=== PATIENT | male | born 1930 | race Caucasian/White ===

== ENCOUNTER → 2016-07-23 | Outpatient (CLI) | payer MEDICARE, MEDICAID ==
[~2016-07-23] MED LIST: CHOL378P PO; FINA5TAB42 PO; FLUO5DRO RIGHT EYE; FURO20TA4 PO; LACT1CAP56 PO; LEVO125T11 PO; LORA-320 PO; MAGN400T26 PO; OMEP20CA10 PO; POTA10CA37 PO; SODI45SP5 EA NOSTRIL; TAMS0.4C20 PO; TIMO5DRO BOTH EYES; [UNRECOGNIZED DRUG - CODE] IM; [UNRECOGNIZED DRUG - CODE] PO; [UNRECOGNIZED DRUG - CODE] PO
== END ==
LOC: LABNH.BH 06:17
PROVIDERS: ATTEND Family Medicine
DX: E03.9 Hypothyroidism, unspecified (principal)
CPT/HCPCS: 36415; 84443; P9604

== ENCOUNTER → 2016-08-12 | Outpatient (CLI) | payer MEDICARE, MEDICAID ==
[~2016-08-12] MED LIST changes: +CULTURELLE CAP1 EAC1 PO; -LACT1CAP56 PO
== END ==
LOC: LABNH.BH 01:22
PROVIDERS: ATTEND Family Medicine
DX: E83.40 Disorders of magnesium metabolism, unspecified (principal)
CPT/HCPCS: 36415; 83735; P9604

== ENCOUNTER 2017-06-07 15:24 | Inpatient (IN) ==
--- NOTE | 2017-06-07 18:25 | Emergency Department Report ---
General Adult HPI - General Chief complaint: Medical Emergency <AugustJerson - 06/17/17 10:16> Stated complaint: not eating & drinking <AugustJerson 06/17/17 10:16> Time Seen by Provider: 06/07/17 18:15 <AugustGermánJerson M 06/17/17 10:16> Source: other (detention staff) <Antonina Suarez 06/07/17 18:28> Mode of arrival: wheelchair <Antonina Suarez 06/07/17 18:28> Limitations: altered mental status <Antonina Suarez 06/07/17 18:28> - History of Present Illness HPI narrative: Pt presents from the [facility] with increased weakness and fatigue. Staff reports pt was tested for flu last week and found to be negative. He was placed on Tamiflu. However pt has had an increase in weakness and staff has noted he is not ambulating or participating in daily activities as usual. Pt is unable to verbalize any symptoms <Antonina Suarez 06/07/17 18:28> Onset (ago): day(s) <Antonina Suarez 06/07/17 18:28> - Related Data Home Medications Medication Instructions Recorded Confirmed Tamsulosin HCl [Flomax] 0.4 mg PO HS #0 03/06/13 06/07/17 Levothyroxine Sodium 125 mcg PO ACB #0 10/21/15 06/07/17 Bisacodyl Supp [Dulcolax] 10 mg RECTALLY DAILY PRN 06/07/17 06/07/17 Cholestyramine (with Sugar) 4 gm PO BIDLS 06/07/17 06/07/17 [Questran Powder] Dextran 70/Hypromellose/Pf [Tears 1 drop EACH EYE TID 06/07/17 06/07/17 Naturale Free Drops] Dorzolamide HCl/Timolol Maleat 1 drop LEFT EYE BID 06/07/17 06/07/17 [Cosopt Eye Drops] Finasteride [Proscar] 5 mg PO DAILY 06/07/17 06/07/17 Furosemide [Lasix] 60 mg PO DAILY 06/07/17 06/07/17 Lactobacillus [Culturelle] 1 cap PO DAILY 06/07/17 06/07/17 Lactose-Reduced Food [Nutritional 237 ml PO TID 06/07/17 06/07/17 Shake] Magnesium Oxide [Magnesium] 800 mg PO DAILY 06/07/17 06/07/17 Mirtazapine [Remeron] 7.5 mg PO HS 06/07/17 06/07/17 Multivitamin/Iron/Folic Acid 1 tab PO DAILY 06/07/17 06/07/17 [Multivitamin with Iron Tablet] Oseltamivir Phosphate 75 mg PO BID 06/07/17 06/07/17 Potassium Chloride [Klor-Con 10 meq PO BID 06/07/17 06/07/17 Sprinkle] Sodium Chloride [Saline Nasal Mist] 2 spray EA NOSTRIL TID 06/07/17 06/07/17 Travoprost 0.004% Eye Drops 1 drop LEFT EYE HS 06/07/17 06/07/17 [Travatan Z] acetaZOLAMIDE [Acetazolamide] 500 mg PO BID 06/07/17 06/07/17 guaiFENesin [Guaifenesin] 200 mg PO TID PRN 06/07/17 06/07/17 prednisoLONE acetate [Prednisolone 1 drop LEFT EYE BID 06/07/17 06/07/17 Acetate] <August,[facility] 06/17/17 10:16> Allergies Allergy/AdvReac Type Severity Reaction Status Date / Time apraclonidine Allergy Unknown Verified 06/07/17 18:08 ceftriaxone Allergy Unknown Verified 06/07/17 18:08 cefuroxime Allergy Unknown Verified 06/07/17 18:08 <August,[facility] 06/17/17 10:16> Review of Systems Limitations: ROS unobtainable due to patient's medical condition <Antonina Suarez - 06/07/17 18:28> [facility] Patient Stated Medical History Cataracts Yes Glaucoma Yes Other HEENT Yes: iridocyclitis, dry eye syndrome, epistaxis , actinic keratosis Other Cardiology Yes: Mitral Valve insufficiency Diabetes Mellitus Type 2 Yes Gastroesophageal Reflux Yes Disease Other GI Yes: Ulcerative Colitis, Constipation Hx Benign Prostatic Yes Hyperplasia An[facility] Yes [facility] Patient Stated Medical History Cataracts Yes Glaucoma Yes Other HEENT Yes: iridocyclitis, dry eye syndrome, epistaxis , actinic keratosis Other Cardiology Yes: Mitral Valve insufficiency Diabetes Mellitus Type 2 Yes Gastroesophageal Reflux Yes Disease Other GI Yes: Ulcerative Colitis, Constipation Hx Benign Prostatic Yes Hyperplasia Anemia Yes <ErickAntonina R 06/07/17 22:56> Physical Exam Limited assessment 2/2 non verbal pt. <Rosie Suarezan Noe Huang 06/07/17 18:28> - Limitations Limitations: altered mental status <Antonina Suarez 06/07/17 18:28> - General General appearance: alert, lethargic <Atnonina Suarez 06/07/17 18:28> - Normal Exams: Head:: Normocephalic without trauma <Antonina Suarez 06/07/17 18:28> Neck:: Full range of motion, without adenopathy <Antonina Suarez 18:28> Abdomen:: Bowel sounds positive, soft, non-tender, non-distended <Antonina Suarez 06/07/17 18:28> Musculoskeletal:: No tenderness, or deformity noted, good range of motion, all extremities <ErickAntonina Noe Huang 06/07/17 18:28> Integumentary:: No rashes <ErickAntoninastella Huang 06/07/17 18:28> Neurological:: Patient is alert <Antonina Suarez 06/07/17 18:28> Course Vital Signs Temperature 97.9 F 06/07/17 15:46 Pulse Rate 91 06/07/17 15:46 Respiratory Rate 18 06/07/17 15:46 Blood Pressure 126/90 H 06/07/17 15:46 Pulse Oximetry 93 06/07/17 15:46 Temperature 99.2 F 06/13/17 23:00 Pulse Rate 89 06/13/17 23:00 Respiratory Rate 20 06/13/17 23:00 Blood Pressure 155/45 H 06/13/17 23:00 Pulse Oximetry 98 06/13/17 23:00 <AugustJerson - 06/17/17 10:16> Medical Decision Making - MDM Narrative Medical decision making narrative: Lab, X ray and EKG obtained, history reviewed. Findings discussed with Dr Jimenez with telemedicine who requests additional lab. That lab obtained Dr Jimenez returned call accepting to admit pt inpatient tele. FIndings and plan discussed with pt and pt bedside staff. <Antonina Suarez R - 06/07/17 22:56> - Differential Diagnosis pneumonia, influenza, UTI, CVA <Antonina Suarez - 06/07/17 18:28> - Lab Data Lab results reviewed: Yes: I reviewed the patient's lab results. <Antonina Suarez R - 06/07/17 22:56> Result diagrams: 06/10/17 05:16 06/10/17 05:16 <AugustJerson M - 06/17/17 10:16> Lab Results 06/07/17 06/07/17 06/07/17 Range/Units 18:36 18:39 18:39 WBC 10.8 (4.5-11.0) T/MM3 RBC 4.34 L (4.50-5.90) M/MM3 Hgb 14.9 (13.5-17.5) GM/DL Hct 44.9 (41-53) % MCV 103.5 H (80-100) UM3 MCH 34.3 H (26-34) UUG MCHC 33.2 (31-37) GM/DL RDW Std Deviation 57.4 H (36.9-50.2) FL Plt Count 134 (130-400) T/MM3 MPV 11.3 (9.4-12.4) UM3 Immature Gran % (Auto) Not performed Neut % (Auto) Not performed Lymph % (Auto) Not performed Ray % (Auto) Not performed Eos % (Auto) Not performed Baso % (Auto) Not performed Neut # (Auto) Not performed Lymph # (Auto) Not performed Ray # (Auto) Not performed Eos # (Auto) Not performed Baso # (Auto) Not performed Abs Immat Gran (auto) Not performed Neutrophils % (Manual) 78.0 H (33-66) % Lymphocytes % (Manual) 14.0 L (23-45) % Monocytes % (Manual) 8.0 (0-9.0) % Neutrophils # (Manual) 8.4 H (1.8-7.7) T/MM3 Lymphocytes # (Manual) 1.5 (1-4.8) T/MM3 Monocytes # (Manual) 0.9 H (0-0.8) T/MM3 Nucleated RBCs 2 Polychromasia 1+ Anisocytosis 1+ Macrocytosis 1+ RBC Morph Comment Abnormal Turbidity < 20 (0-20) Sodium 146 H (134-144) MEQ/L Potassium 4.5 (3.6-5) MEQ/L Chloride 113 H (98-107) MEQ/L Carbon Dioxide 16 L (22-30) MEQ/L Anion Gap 17 H (5-15) MEQ/L BUN 52.0 H* (9-20) MG/DL Creatinine 1.6 H (0.8-1.5) MG/DL GFR Calculation 41 BUN/Creatinine Ratio 33 H (6-26) RATIO Glucose 142 H (75-110) MG/DL Calculated Osmolality 297 H (261-280) MOSM/KG Calcium 9.3 (8.4-10.2) MG/DL Total Bilirubin 1.30 (0.20-1.30) MG/DL Icterus Index < 2 (0-7) AST 23 (17-59) U/L ALT 41 (21-72) U/L Alkaline Phosphatase 93 (38-126) U/L Troponin I 0.038 (0-0.12) ng/ml B-Natriuretic Peptide (0-175) pg/mL Total Protein 7.8 (6.3-8.2) G/DL Albumin 4.1 (3.5-5.0) G/DL Globulin 3.7 H (2.4-3.6) G/DL Albumin/Globulin Ratio 1.1 (1.1-2.2) RATIO Specimen Hemolysis < 15 < 15 (0-25) Adenovirus (PCR) (Negative) B.parapertussis DNA PCR (Negative) C. pneumoniae DNA (PCR) (Negative) Coronavirus OC43 (PCR) (Negative) Coronavirus HKU1 (PCR) (Negative) Coronavirus 229E (PCR) (Negative) Coronavirus NL63 (PCR) (Negative) Human Metapneumovir PCR (Negative) Influenza A (H1) PCR (Negative) Influ A (H1N1/09) PCR (Negative) Influenza A (H3) PCR (Negative) Influenza Type A (PCR) (Negative) Influenza A Untype (PCR) (Negative) Influenza Type B (PCR) (Negative) M. pneumoniae (PCR) (Negative) Parainfluenza 1 (PCR) (Negative) Parainfluenza 2 (PCR) (Negative) Parainfluenza 3 (PCR) (Negative) Parainfluenza 4 (PCR) (Negative) RSV (PCR) (Negative) Entero/Rhino (PCR) (Negative) 06/07/17 06/07/17 Range/Units 18:39 19:37 WBC (4.5-11.0) T/MM3 RBC (4.50-5.90) M/MM3 Hgb (13.5-17.5) GM/DL Hct (41-53) % MCV (80-100) UM3 MCH (26-34) UUG MCHC (31-37) GM/DL RDW Std Deviation (36.9-50.2) FL Plt Count (130-400) T/MM3 MPV (9.4-12.4) UM3 Immature Gran % (Auto) Neut % (Auto) Lymph % (Auto) Ray % (Auto) Eos % (Auto) Baso % (Auto) Neut # (Auto) Lymph # (Auto) Ray # (Auto) Eos # (Auto) Baso # (Auto) Abs Immat Gran (auto) Neutrophils % (Manual) (33-66) % Lymphocytes % (Manual) (23-45) % Monocytes % (Manual) (0-9.0) % Neutrophils # (Manual) (1.8-7.7) T/MM3 Lymphocytes # (Manual) (1-4.8) T/MM3 Monocytes # (Manual) (0-0.8) T/MM3 Nucleated RBCs Polychromasia Anisocytosis Macrocytosis RBC Morph Comment Turbidity (0-20) Sodium (134-144) MEQ/L Potassium (3.6-5) MEQ/L Chloride (98-107) MEQ/L Carbon Dioxide (22-30) MEQ/L Anion Gap (5-15) MEQ/L BUN (9-20) MG/DL Creatinine (0.8-1.5) MG/DL GFR Calculation BUN/Creatinine Ratio (6-26) RATIO Glucose (75-110) MG/DL Calculated Osmolality (261-280) MOSM/KG Calcium (8.4-10.2) MG/DL Total Bilirubin (0.20-1.30) MG/DL Icterus Index (0-7) AST (17-59) U/L ALT (21-72) U/L Alkaline Phosphatase (38-126) U/L Troponin I (0-0.12) ng/ml B-Natriuretic Peptide 7970 H (0-175) pg/mL Total Protein (6.3-8.2) G/DL Albumin (3.5-5.0) G/DL Globulin (2.4-3.6) G/DL Albumin/Globulin Ratio (1.1-2.2) RATIO Specimen Hemolysis (0-25) Adenovirus (PCR) Negative (Negative) B.parapertussis DNA PCR Negative (Negative) C. pneumoniae DNA (PCR) Negative (Negative) Coronavirus OC43 (PCR) Negative (Negative) Coronavirus HKU1 (PCR) Negative (Negative) Coronavirus 229E (PCR) Negative (Negative) Coronavirus NL63 (PCR) Negative (Negative) Human Metapneumovir PCR Negative (Negative) Influenza A (H1) PCR Negative (Negative) Influ A (H1N1/09) PCR Negative (Negative) Influenza A (H3) PCR Negative (Negative) Influenza Type A (PCR) Negative (Negative) Influenza A Untype (PCR) Negative (Negative) Influenza Type B (PCR) Negative (Negative) M. pneumoniae (PCR) Negative (Negative) Parainfluenza 1 (PCR) Negative (Negative) Parainfluenza 2 (PCR) Negative (Negative) Parainfluenza 3 (PCR) Negative (Negative) Parainfluenza 4 (PCR) Negative (Negative) RSV (PCR) Negative (Negative) Entero/Rhino (PCR) Negative (Negative) <August,[facility] - 06/17/17 10:16> Lab Results 06/07/17 06/07/17 06/07/17 Range/Units 18:36 18:39 18:39 WBC 10.8 (4.5-11.0) T/MM3 RBC 4.34 L (4.50-5.90) M/MM3 Hgb 14.9 (13.5-17.5) GM/DL Hct 44.9 (41-53) % MCV 103.5 H (80-100) UM3 MCH 34.3 H (26-34) UUG MCHC 33.2 (31-37) GM/DL RDW Std Deviation 57.4 H (36.9-50.2) FL Plt Count 134 (130-400) T/MM3 MPV 11.3 (9.4-12.4) UM3 Immature Gran % (Auto) Not performed Neut % (Auto) Not performed Lymph % (Auto) Not performed Ray % (Auto) Not performed Eos % (Auto) Not performed Baso % (Auto) Not performed Neut # (Auto) Not performed Lymph # (Auto) Not performed Ray # (Auto) Not performed Eos # (Auto) Not performed Baso # (Auto) Not performed Abs Immat Gran (auto) Not performed Neutrophils % (Manual) 78.0 H (33-66) % Lymphocytes % (Manual) 14.0 L (23-45) % Monocytes % (Manual) 8.0 (0-9.0) % Neutrophils # (Manual) 8.4 H (1.8-7.7) T/MM3 Lymphocytes # (Manual) 1.5 (1-4.8) T/MM3 Monocytes # (Manual) 0.9 H (0-0.8) T/MM3 Nucleated RBCs 2 Polychromasia 1+ Anisocytosis 1+ Macrocytosis 1+ RBC Morph Comment Abnormal Turbidity < 20 (0-20) Sodium 146 H (134-144) MEQ/L Potassium 4.5 (3.6-5) MEQ/L Chloride 113 H (98-107) MEQ/L Carbon Dioxide 16 L (22-30) MEQ/L Anion Gap 17 H (5-15) MEQ/L BUN 52.0 H* (9-20) MG/DL Creatinine 1.6 H (0.8-1.5) MG/DL GFR Calculation 41 BUN/Creatinine Ratio 33 H (6-26) RATIO Glucose 142 H (75-110) MG/DL Calculated Osmolality 297 H (261-280) MOSM/KG Calcium 9.3 (8.4-10.2) MG/DL Total Bilirubin 1.30 (0.20-1.30) MG/DL Icterus Index < 2 (0-7) AST 23 (17-59) U/L ALT 41 (21-72) U/L Alkaline Phosphatase 93 (38-126) U/L Troponin I 0.038 (0-0.12) ng/ml B-Natriuretic Peptide (0-175) pg/mL Total Protein 7.8 (6.3-8.2) G/DL Albumin 4.1 (3.5-5.0) G/DL Globulin 3.7 H (2.4-3.6) G/DL Albumin/Globulin Ratio 1.1 (1.1-2.2) RATIO Specimen Hemolysis < 15 < 15 (0-25) Adenovirus (PCR) (Negative) B.parapertussis DNA PCR (Negative) C. pneumoniae DNA (PCR) (Negative) Coronavirus OC43 (PCR) (Negative) Coronavirus HKU1 (PCR) (Negative) Coronavirus 229E (PCR) (Negative) Coronavirus NL63 (PCR) (Negative) Human Metapneumovir PCR (Negative) Influenza A (H1) PCR (Negative) Influ A (H1N1/09) PCR (Negative) Influenza A (H3) PCR (Negative) Influenza Type A (PCR) (Negative) Influenza A Untype (PCR) (Negative) Influenza Type B (PCR) (Negative) M. pneumoniae (PCR) (Negative) Parainfluenza 1 (PCR) (Negative) Parainfluenza 2 (PCR) (Negative) Parainfluenza 3 (PCR) (Negative) Parainfluenza 4 (PCR) (Negative) RSV (PCR) (Negative) Entero/Rhino (PCR) (Negative) 06/07/17 06/07/17 Range/Units 18:39 19:37 WBC (4.5-11.0) T/MM3 RBC (4.50-5.90) M/MM3 Hgb (13.5-17.5) GM/DL Hct (41-53) % MCV (80-100) UM3 MCH (26-34) UUG MCHC (31-37) GM/DL RDW Std Deviation (36.9-50.2) FL Plt Count (130-400) T/MM3 MPV (9.4-12.4) UM3 Immature Gran % (Auto) Neut % (Auto) Lymph % (Auto) Ray % (Auto) Eos % (Auto) Baso % (Auto) Neut # (Auto) Lymph # (Auto) Ray # (Auto) Eos # (Auto) Baso # (Auto) Abs Immat Gran (auto) Neutrophils % (Manual) (33-66) % Lymphocytes % (Manual) (23-45) % Monocytes % (Manual) (0-9.0) % Neutrophils # (Manual) (1.8-7.7) T/MM3 Lymphocytes # (Manual) (1-4.8) T/MM3 Monocytes # (Manual) (0-0.8) T/MM3 Nucleated RBCs Polychromasia Anisocytosis Macrocytosis RBC Morph Comment Turbidity (0-20) Sodium (134-144) MEQ/L Potassium (3.6-5) MEQ/L Chloride (98-107) MEQ/L Carbon Dioxide (22-30) MEQ/L Anion Gap (5-15) MEQ/L BUN (9-20) MG/DL Creatinine (0.8-1.5) MG/DL GFR Calculation BUN/Creatinine Ratio (6-26) RATIO Glucose (75-110) MG/DL Calculated Osmolality (261-280) MOSM/KG Calcium (8.4-10.2) MG/DL Total Bilirubin (0.20-1.30) MG/DL Icterus Index (0-7) AST (17-59) U/L ALT (21-72) U/L Alkaline Phosphatase (38-126) U/L Troponin I (0-0.12) ng/ml B-Natriuretic Peptide 7970 H (0-175) pg/mL Total Protein (6.3-8.2) G/DL Albumin (3.5-5.0) G/DL Globulin (2.4-3.6) G/DL Albumin/Globulin Ratio (1.1-2.2) RATIO Specimen Hemolysis (0-25) Adenovirus (PCR) Negative (Negative) B.parapertussis DNA PCR Negative (Negative) C. pneumoniae DNA (PCR) Negative (Negative) Coronavirus OC43 (PCR) Negative (Negative) Coronavirus HKU1 (PCR) Negative (Negative) Coronavirus 229E (PCR) Negative (Negative) Coronavirus NL63 (PCR) Negative (Negative) Human Metapneumovir PCR Negative (Negative) Influenza A (H1) PCR Negative (Negative) Influ A (H1N1/09) PCR Negative (Negative) Influenza A (H3) PCR Negative (Negative) Influenza Type A (PCR) Negative (Negative) Influenza A Untype (PCR) Negative (Negative) Influenza Type B (PCR) Negative (Negative) M. pneumoniae (PCR) Negative (Negative) Parainfluenza 1 (PCR) Negative (Negative) Parainfluenza 2 (PCR) Negative (Negative) Parainfluenza 3 (PCR) Negative (Negative) Parainfluenza 4 (PCR) Negative (Negative) RSV (PCR) Negative (Negative) Entero/Rhino (PCR) Negative (Negative) <Antonina Suarez 06/07/17 22:56> - Radiology Data Radiology results reviewed: Yes: I reviewed the patient's radiology results. < Antonina Suarez 06/07/17 22:56> CHest xray per Dr WEISS with no acute processes <Rosie Suarezan 06/07/17 22:56> - EKG Data EKG #1 EKG attestation: Yes: I reviewed and interpreted this EKG. <August,Jerson 10:16> Rate: tachycardia <eb 06/17/17 10:16> Rhythm: A.Fib <eb 06/17/17 10:16> [place]/QRS: RBBB, LAHB/LAFB <eb 06/17/17 10:16> Interpretation: nonspecific ST-T wave changes <06/17/17 10:16> Disposition Clinical Impression: Acute renal failure (ARF) A-fib Qualifiers: Atrial fibrillation type: unspecified Qualified Code(s): I48.91 - Unspecified atrial fibrillation <August,Jerson 06/17/17 10:16> Disposition: 02 To [facility] [place] <06/17/17 10:16> Condition: <August,Jerson 06/17/17 10:16> Instructions: <06/17/17 10:16> Prescriptions: No Action Levothyroxine Sodium 125 mcg PO ACB #0 Multivitamin/Iron/Folic Acid [Multivitamin with Iron Tablet] 1 tab PO DAILY Sodium Chloride [Saline Nasal Mist] 2 spray EA NOSTRIL TID Mirtazapine [Remeron] 7.5 mg PO HS prednisoLONE acetate [Prednisolone Acetate] 1 drop LEFT EYE BID Dextran 70/Hypromellose/Pf [Tears Naturale Free Drops] 1 drop EACH EYE TID Magnesium Oxide [Magnesium] 800 mg PO DAILY Furosemide [Lasix] 60 mg PO DAILY Potassium Chloride [Klor-Con Sprinkle] 10 meq PO BID guaiFENesin [Guaifenesin] 200 mg PO TID PRN PRN Reason: Prn Orders Finasteride [Proscar] 5 mg PO DAILY acetaZOLAMIDE [Acetazolamide] 500 mg PO BID Lactobacillus [Culturelle] 1 cap PO DAILY Dorzolamide HCl/Timolol Maleat [Cosopt Eye Drops] 1 drop LEFT EYE BID Bisacodyl Supp [Dulcolax] 10 mg RECTALLY DAILY PRN PRN Reason: Constipation Travoprost 0.004% Eye Drops [Travatan Z] 1 drop LEFT EYE HS Tamsulosin HCl [Flomax] 0.4 mg PO HS #0 Oseltamivir Phosphate 75 mg PO BID Cholestyramine (with Sugar) [Questran Powder] 4 gm PO BIDLS Lactose-Reduced Food [Nutritional Shake] 237 ml PO TID <AugustJerson 06/17 10:16> Referrals: Jose Ojeda MD [Family Provider] - <AugustJerson 06/17/17 10 :16> Forms: <AugustJerson 06/17/17 10:16> Time of Disposition: 22:56 <Antonina Suarez 06/07/17 22:56> - Seen By: midlevel <Antonina Suarez 06/07/17 22:56>
[2017-06-07] MEDS ORDERED: NS 1,000 ML IV SCH (20:00)
[2017-06-07] MEDS: SALINE FLUSH 10ml SYRINGE IVF PRN (20:06)
[2017-06-08] MEDS ORDERED: ONDANSETRON 4 MG/2 ML INJECTION IVP PRN (00:21)
[2017-06-08] MEDS ORDERED: ACETAMINOPHEN 325 MG TABLET PO PRN (00:21)
[2017-06-08] MEDS ORDERED: DOCUSATE SODIUM 100 MG CAPSULE PO PRN (00:21)
[2017-06-08] MEDS ORDERED: HYDROCODONE/APAP 5mg/325mg TABLET PO PRN (00:21)
--- NOTE | 2017-06-08 00:29 | History & Physical Report ---
History of Present Illness Date: 06/08/17 Chief complaint: weakness HPI: This is a 86 y/o male who lives at a local nursing care facility. His DPOA is "curly" phone # [phone]. The IA reports that he has been weak for sure over the past 3 days if not longer. He has not eaten much food and has a chronic desire to drink water. The patient was seen by his PCP last week and even though his flu swabs were negative, started him on tamiflu. The patient continues to be weak and is presented to the ED for further assessment of his decline in baseline medical status. In the ED the patient metabolic workup demonstrates evidence of acute kidney injury. UA is still pending. What was discovered was he was in atrial fibrillation rate controlled. A review of the medication list did not indicate atrial fibrillation. Patient not able to provide history. viral panel was neg for infectious process. The pateint is admitted to workup up what appears to be new onset atrial fibrillation Review of Systems Review of systems: not able to obtain at all due to patient's clinical condition Past Medical History Patient Stated Medical History Cataracts Yes Glaucoma Yes Other HEENT Yes: iridocyclitis, dry eye syndrome, epistaxis , actinic keratosis Other Cardiology Yes: Mitral Valve insufficiency Diabetes Mellitus Type 2 Yes Gastroesophageal Reflux Yes Disease Other GI Yes: Ulcerative Colitis, Constipation Hx Benign Prostatic Yes Hyperplasia Anemia Yes Surgical History: unkown at this time Family History Updates: unkown at this time, and non contributory at this patient's age - Social History Smoking status: Unknown if ever smoked Substance use type: does not use Alcohol intake frequency: does not drink Housing: [facility] Household members: none Current residence: [facility] Medications Home Medications Medication Instructions Recorded Confirmed Type Tamsulosin HCl [Flomax] 0.4 mg PO HS #0 03/06/13 06/07/17 History Levothyroxine Sodium 125 mcg PO ACB #0 10/21/15 06/07/17 History Bisacodyl Supp [Dulcolax] 10 mg RECTALLY DAILY PRN 06/07/17 06/07/17 History Cholestyramine (with Sugar) 4 gm PO BIDLS 06/07/17 06/07/17 History [Questran Powder] Dextran 70/Hypromellose/Pf [Tears 1 drop EACH EYE TID 06/07/17 06/07/17 History Naturale Free Drops] Dorzolamide HCl/Timolol Maleat 1 drop LEFT EYE BID 06/07/17 06/07/17 History [Cosopt Eye Drops] Finasteride [Proscar] 5 mg PO DAILY 06/07/17 06/07/17 History Furosemide [Lasix] 60 mg PO DAILY 06/07/17 06/07/17 History Lactobacillus [Culturelle] 1 cap PO DAILY 06/07/17 06/07/17 History Lactose-Reduced Food [Nutritional 237 ml PO TID 06/07/17 06/07/17 History Shake] Magnesium Oxide [Magnesium] 800 mg PO DAILY 06/07/17 06/07/17 History Mirtazapine [Remeron] 7.5 mg PO HS 06/07/17 06/07/17 History Multivitamin/Iron/Folic Acid 1 tab PO DAILY 06/07/17 06/07/17 History [Multivitamin with Iron Tablet] Oseltamivir Phosphate 75 mg PO BID 06/07/17 06/07/17 History Potassium Chloride [Klor-Con 10 meq PO BID 06/07/17 06/07/17 History Sprinkle] Sodium Chloride [Saline Nasal Mist] 2 spray EA NOSTRIL TID 06/07/17 06/07/17 History Travoprost 0.004% Eye Drops 1 drop LEFT EYE HS 06/07/17 06/07/17 History [Travatan Z] acetaZOLAMIDE [Acetazolamide] 500 mg PO BID 06/07/17 06/07/17 History guaiFENesin [Guaifenesin] 200 mg PO TID PRN 06/07/17 06/07/17 History prednisoLONE acetate [Prednisolone 1 drop LEFT EYE BID 06/07/17 06/07/17 History Acetate] Allergies Allergy/AdvReac Type Severity Reaction Status Date / Time apraclonidine Allergy Unknown Verified 06/07/17 18:08 ceftriaxone Allergy Unknown Verified 06/07/17 18:08 cefuroxime Allergy Unknown Verified 06/07/17 18:08 Exam Vital Signs: Temperature 95.9 F L 06/07/17 23:43 Pulse Rate 109 H 06/07/17 23:43 Respiratory Rate 18 06/07/17 23:43 Blood Pressure 103/67 06/07/17 23:43 Pulse Oximetry 98 06/07/17 22:17 Telemetry Rhythm: A-fib Telemetry Ectopy: Bundle Branch Block Height/Weight/BMI: Height 1.91 m Weight 70 kg Body Mass Index 19.3 - Constitutional Present: mild distress, well developed, thin, cachectic, disheveled. Absent: well nourished - Routine HEENT Exam Head: Present: normocephalic, atraumatic Eye: Present: EOMI ENT: Present: mucous membranes dry - Routine Neck Exam Present: supple, full ROM - Routine Respiratory Exam Present: decreased breath sounds, CTA bilaterally. Absent: rhonchi, stridor, wheezes - Routine Cardiovascular Exam Present: murmur, irregularly irregular Comments: 06/08 miriam - Routine Abdominal Exam Present: soft (scaphoid, non tender per nurisng, bowl sounds present) - Routine Extremities Exam Present: no edema, full ROM - Routine Back/Spine/Pelvis Exam Back/Spine: Present: full ROM - Routine Skin Exam Present: intact, dry - Routine Neurological Exam Present: moving all extremities, normal tone. Absent: alert, oriented X3, motor deficit, altered mental status - Routine Psychiatric Exam Absent: normal affect Results - Labs CBC & Chem 7: 06/08/17 07:17 06/08/17 07:17 Labs: labs reviewed and demonstrate acute kidney injury - ECG Data Tracing #1 atrial fib with reasonable rate control, LAFB, RBBB - Imaging and Cardiology Chest x-ray Additional comments: no acute process Assessment and Plan (1) A-fib Current visit: Yes Status: Acute (2) Acute renal failure (ARF) Current visit: Yes Status: Acute (3) Mitral valve prolapse Current visit: Yes Status: Acute (4) DM type 2 (diabetes mellitus, type 2) Current visit: Yes Status: Acute (5) GERD (gastroesophageal reflux disease) Current visit: Yes Status: Acute (6) Protein calorie malnutrition Current visit: Yes Status: Acute Assessment and Plan: 1. atrial fib acute POA: this would appear to be a new diagnosis. aspirin for sure. not convinced great candidate for anticoagulation. his CHADSVASC score is at least 2. Echo ordered in am. on tele. rule out. consider card cx in the am to discuss meds. (especially for this age). 2. acute renal failure POA: dehydration (pre renal). poor po intake wiht diuretic therapy. hold any diuretic therapy, gentle hydration, repeat in the am 3. hyperglycemia acute POA: there is mention of dm2 in a previous record. NH not clear. will recheck bmp in am and if elevated consider correction plan. Note do not r/c tight control at this age 4. protein caloric malnturtion acute POA: type not able to specify. patient is clinically very dry on exam and is described to have veyr poor po intake. consider dietary cx 5. gap metabolic acidosis acute POA: of some concern if diabetic. will check BHBA level and make any further considerations after that. Highly unlikely dka but must at least keep on radar 6. hypothyroid chronic POa: check TSH Angelo Assessment DVT Prophylaxis: SCD's, Lovenox GI Prophylaxis: Protonix Resuscitation Status: Full Code - Time spent with patient Time with patient PN: 35 minutes - Physician Narrative Physician: Sina Stephens MD Narrative: Date: 06/08/17 Time: 1400 I have independently interviewed and examined patient. Chart reviewed. Reviewed above note an concur. CC: Weakness/fatigue, not eating/drinking. HPI: 86 y/o male who resides in [place] presents to ED secondary to progressive weakness. Symptoms worsening over past several day. He has not been doing his daily activities as usual. Oral drive decreased. Was evaluated last week for similar symptoms. Flu screen negative. Patient stared on Tamiflu. Progressive decline in functional status. More confuse and somnolent. Presents to ED for evaluation. Creatinine showing increase at 1.6 (Baseline 0.8), serum sodium elevated at 146. HR elevated - rhythm afib. Initial BP normal at 126 systolic, but despite IVF given BP continued to show elevation and BP decreased to low 100s. Admitted under hospitalist service for further evaluation and supportive care. PHMx: Type II DM, Hypothyroidism, GERD, UC, BPH, OA, Glaucoma, Dry Eyes. PSxHx: Unobtainable from patient due to encephalopathy ALL: Rocephin, cefuroxime, apraclonidine MEDS: see MAR SHx: resides at [facility]. Single. No ETOH, Dr Ojeda PCP. FHx: unobtainable from patient secondary to encephalopathy ROS: Essentially unobtainable from patient. All I could get out of him was he ' wants a Pepsi' - words were very garbled and took multiple attempts for me to understand that. Exam Gen: WD thin elderly male with confusion and restlessness HEENT: NC/AT PERRLA EOMI MM dry, poor dentition Neck: supple, trachea midline Lungs: decreased bilaterally, upper airway noises. No distress on RA. CV: irregularly irregular with IV/ MIRIAM AB: soft, flat, nt/nd +BS EXT: thin, no edema. Normal radial pulses bilaterally MS: decreased muscle mass to upper/low ext Neuro: CN II-XII appear intact. Patient moves all ext spontaneously Psych: confused and restless. Not able to follow commands or answer questions. Skin: warm and dry Assessment Afib with RVR - new onset Acute Kidney injury Acute Encephalopathy Hypernatremia (POA) Dysphagia Acute generalized debility Type II DM Mitral valve prolaps GERD BPH Stage II CKD Plan Inpatient admission for treatment of afib/rvr, FRANCES, and encephalopathy. Anticipate greater than 2 midnights of care needed. Tele. Serial enzymes to R/O AMI. Metoprolol prn tachycardia. Check ECHO secondary to MVP and afib. IVF for hydration. NS bolus given in ED. Continue with NS at 100cc/hr for hydration. Midline placed as patient with very poor peripheral IV access. Speech to check swallow function. PT/OT to help improve functional status. Will stop Tamiflu secondary to encephalopathy-likely not initial cause of his decline, but likely contributing to encephalopathy at this point. Repeat Flu negative. SCD for DVT prevention. Full code as per his prior requests. Care to return to Dr Ojeda at time [place] [facility] [place] Course Summary Disclaimer: The visit summary below is not to be considered part of the above Progress Note. Hospital Course: 06/07/17 Admission Atrial fib acute POA: this would appear to be a new diagnosis. aspirin for sure. Not convinced great candidate for anticoagulation. his CHADSVASC score is at least 2. Echo ordered in am. on tele. Rule out ND. Consider card cx in the am to discuss meds. (especially for this age). Acute renal failure POA: dehydration (pre renal). poor po intake with diuretic therapy. hold any diuretic therapy, gentle hydration, repeat in the am Hyperglycemia acute POA: there is mention of dm2 in a previous record. NH not clear. will recheck bmp in am and if elevated consider correction plan. Note do not r/c tight control at this age Protein caloric malnutrition acute POA: type not able to specify. patient is clinically very dry on exam and is described to have veyr poor po intake. consider dietary cx Gap metabolic acidosis acute POA: of some concern if diabetic. will check BHBA level and make any further considerations after that. Highly unlikely dka but must at least keep on radar Hypothyroid chronic POa: check TSH 06/08/17 Serial troponin negative for elevation. Sodium with decrease to 144 and creatinine with decrease to 1.4. TSH normal. Patient still very weak and encephalopathic. Continue with NS at 100cc/hr for hydration. Oral drive very poor. Midline placed as patient with very poor peripheral IV access. Speech to check swallow function. PT/OT to help improve functional status. Will stop Tamiflu secondary to encephalopathy-likely not initial cause of his decline, but likely contributing to encephalopathy at this point. Repeat Flu negative.
[2017-06-08] MEDS: NS 1,000 ML IV SCH ×2 (00:31→15:42)
[2017-06-08] MEDS: LEVOTHYROXINE 125 MCG TABLET PO SCH (06:09)
--- NOTE | 2017-06-08 08:11 | XRay Report ---
INDICATION: weakness PROCEDURE: CHEST 2-VIEWS UPRIGHT (PA & LAT) Encounter: Initial COMPARISON: None FINDINGS: The lungs are clear without evidence of focal abnormal airspace opacity. There is no pleural effusion or pneumothorax. Emphysema. The cardiac silhouette is moderately enlarged. The mediastinal contours and pulmonary vascularity are within normal limits. There is no significant skeletal abnormality. IMPRESSION: No acute pneumonia or congestive failure. Moderate enlargement of the cardiac silhouette could be due to cardiomegaly or pericardial effusion. .
[2017-06-08] MEDS: ENOXAPARIN 40 MG/0.4 ML INJECTION SQ SCH (11:01)
--- NOTE | 2017-06-08 15:54 | Echocardiogram ---
DATE OF PROCEDURE June 08, 2017 This is a two-dimensional echo with spectral Doppler, color-flow and M-mode. It was obtained in a patient with atrial fibrillation. This is a technically difficult study. Left atrial dimension is increased. Left ventricular end-diastolic dimension is normal. Left ventricular wall thickness is normal. LV systolic function is normal with ejection fraction of about 72%. Right atrium is normal. Right ventricle is normal. Aortic root dimension is normal. Mitral valve shows anterior leaflet mitral valve prolapse with [id number]-vg-[id number] mitral regurgitation. Aortic valve is a trileaflet structure with no stenosis or insufficiency. Tricuspid valve shows moderate tricuspid regurgitation with moderate pulmonary hypertension with estimated pulmonary artery systolic pressure of 50. Pulmonary valve shows mild pulmonary insufficiency. There is no pericardial effusion. IMPRESSION 1. Normal LV systolic function with ejection fraction of about 72%. 2. Anterior leaflet mitral valve prolapse with lvyllkjb-wj-fuqkvf mitral regurgitation. 3. Left atrial dilation. 4. Mild pulmonary insufficiency. 5. Moderate tricuspid regurgitation with moderate pulmonary hypertension with estimated pulmonary artery systolic pressure of 50. MTDD
[2017-06-08 16:37] VITALS: BMI 19.1
[2017-06-08] MEDS: MIRTAZAPINE 15 MG TABLET PO SCH (21:49)
[2017-06-08] MEDS: TAMSULOSIN 0.4 MG CAPSULE PO SCH (21:50)
[2017-06-08] MEDS: METOPROLOL 5mg/5ml INJECTION IVP PRN (23:07)
[2017-06-09] MEDS: NS 1,000 ML IV SCH ×2 (01:56→08:04)
[2017-06-09] MEDS: METOPROLOL 5mg/5ml INJECTION IVP PRN ×3 (05:05→17:52)
[2017-06-09] MEDS: NS 1,000 ML IV ONE ×2 (06:00→06:40)
[2017-06-09] MEDS ORDERED: NS 1,000 ML IV ONE (06:44)
[2017-06-09] MEDS: LEVOTHYROXINE 125 MCG TABLET PO SCH (07:31)
[2017-06-09] MEDS ORDERED: HALOPERIDOL 5 MG/ML INJECTION IVP PRN (07:31)
--- NOTE | 2017-06-09 07:58 | Progress Note ---
- Date 06/09/17 Subjective: Piter was moved to the CCU d/t resp failure. Nurses have been unable to get a sat on him. He was placed on bipap, and has been responsive only to pain. His BP has been low and he was bolused 2L IVF. He was placed in restraints d/t pulling at tubes/mask. Nurses report mottling of skin. UO has been very low since 2200 last night. Objective Vital signs: Temperature 96.2 F L 06/08/17 23:16 Pulse Rate 125 H 06/09/17 00:00 Respiratory Rate 26 H 06/08/17 23:16 Blood Pressure 110/58 06/09/17 06:48 Pulse Oximetry 93 06/08/17 15:44 Rhythm: Atrial Fibrillation with RVR Height/Weight/BMI: Height 1.91 m Weight 69.5 kg Body Mass Index 19.1 - Constitutional Present: thin, other (responds only to pain) - Routine HEENT Exam Eye: Absent: conjunctival icterus Comments: on bipap - Routine Respiratory Exam Present: decreased breath sounds - Routine Cardiovascular Exam Present: tachycardia, irregularly irregular - Routine Abdominal Exam Present: soft, non distended - Routine Extremities Exam Present: no edema. Absent: normal capillary refill (4 sec) - Routine Skin Exam Present: intact, dry, pallor - Routine Neurological Exam Absent: alert - Routine Psychiatric Exam Present: unable to assess Results - Labs CBC & Chem 7: 06/09/17 04:36 06/09/17 04:36 - ABG Interpretation ABG results: 06/09/17 06:58 VBG pH 7.100 L VBG pCO2 43 VBG pO2 38 L VBG HCO3 13 L VBG Total CO2 14.6 VBG O2 Saturation 50.0 VBG Base Excess -15.8 L Assessment and Plan (1) A-fib Current visit: Yes Status: Acute (2) Acute renal failure (ARF) Current visit: Yes Status: Acute (3) DM type 2 (diabetes mellitus, type 2) Current visit: Yes Status: Acute (4) Protein calorie malnutrition Current visit: Yes Status: Acute Assessment and Plan: Impression Acute respiratory failure requiring BiPAP Hypotension Afib with RVR - new onset Acute Kidney injury Acute Encephalopathy Hypernatremia (POA) Thrombocytopenia Acute generalized debility Hyperkalemia (not POA) MR Dysphagia Mitral valve prolapse with [id number] mitral regurgitation Moderate tricuspid regurgitation with moderate PH Stage II CKD GERD BPH Plan Despite 2L IVF bolus he remains hypotensive with SBP 80-90s. HR improved to 110s after BB was administered. Initially, he was just responsive to pain, but on reassessment a couple hours later he responded by shrugging his shoulders to DPOA/guardian Nachoee who was in the room. Renal function and liver function declined: Cr 1.6, oliguric. LFTs increased. WBC also increased to 16, and plt are down to 116. Clinda and Zosyn started to cover for pulmonary source/poss aspiration. Clarified diagnosis of Type II DM - family deny history Discussed with DPOA -- primary focus is on comfort but at this time will proceed with BiPAP, IVF, abx, Love. DPOA is opposed to aggressive measures ie coding/intubation. If he continues to decline over the next 24 hours will consider comfort care. PT is critically ill; prognosis is guarded at best. Time spent at bedside, discussing with physician, RN, and family: 35 minutes. DVT Prophylaxis: Lovenox Resuscitation Status: Do Not Resuscitate - Time spent with patient Time with patient PN: 35 minutes - Physician Narrative Physician: Sina Stephens MD Narrative: Date: 06/09/17 Time: 1800 Have independently interviewed and examined pt. Chart reviewed. Case discussed with Tele-Hospitalist, CCU nursing, family, and my OVEN BAKER. Care plan developed with my supervision; agree with above. Had dramatic decline overnight-BP decreased, O2 sats decreased, patient much less responsive. Transfer to CCU for care. IVF boluses initiated and BIPAP started for respiratory support. Family did confirm patient is DNR - order written this morning. Initially, family wanting more comfort care (do not want heroic treatments). With IVF and BiPAP, patient did make some rally. Cases discussed with family this morning with Enedina Hansen and myself and we decided to attempt continued medical support due to he rally he was showing this am. Antibiotics initiated in case of aspiration (Zosyn and Clindamycin). As afternoon has progressed, not seeing further improvement. Urine output very diminished. BP trending down. Attempted Levophed for BP support, but family against this treatment. Patient appears comfortable (do have MS and lorazepam available). Anticipate transition to comfort measures soon. On exam lungs where decrease with upper airway noises. CV: irregularly irregular MSE: somnolent; will move arms spontaneously, but not verbally interactive. Hospital Course Summary Disclaimer: The visit summary below is not to be considered part of the above Progress Note. Hospital Course: 06/07/17 Admission Atrial fib acute POA: this would appear to be a new diagnosis. aspirin for sure. Not convinced great candidate for anticoagulation. his CHADSVASC score is at least 2. Echo ordered in am. on tele. Rule out MT. Acute renal failure POA: dehydration (pre renal). poor po intake with diuretic therapy. hold any diuretic therapy, gentle hydration, repeat in the am Hyperglycemia acute POA: there is mention of dm2 in a previous record. NH not clear. will recheck bmp in am and if elevated consider correction plan. Note do not r/c tight control at this age Protein caloric malnutrition acute POA: type not able to specify. patient is clinically very dry on exam and is described to have veyr poor po intake. consider dietary cx Gap metabolic acidosis acute POA: of some concern if diabetic. will check BHBA level and make any further considerations after that. Highly unlikely dka but must at least keep on radar Hypothyroid chronic POa: check TSH 06/08/17 Serial troponin negative for elevation. Sodium with decrease to 144 and creatinine with decrease to 1.4. TSH normal. Patient still very weak and encephalopathic. Continue with NS at 100cc/hr for hydration. Oral drive very poor. Midline placed as patient with very poor peripheral IV access. Speech to check swallow function. PT/OT to help improve functional status. Will stop Tamiflu secondary to encephalopathy-likely not initial cause of his decline, but likely contributing to encephalopathy at this point. Repeat Flu negative. 06/09/17 Despite 2L IVF bolus he remains hypotensive with SBP 80-90s. HR improved to 110s after BB was administered. Initially, he was just responsive to pain, but on reassessment a couple hours later he responded by shrugging his shoulders to DPOA/guardian aNchoee who was in the room. Renal function and liver function declined: Cr 1.6, oliguric. LFTs increased. WBC also increased to 16, and plt are down to 116. Clinda and Zosyn started to cover for pulmonary source/poss aspiration. Clarified diagnosis of Type II DM - family deny history Discussed with DPOA -- primary focus is on comfort but at this time will proceed with BiPAP, IVF, abx, Love. DPOA is opposed to aggressive measures ie coding/intubation. If he continues to decline over the next 24 hours will consider comfort care. PT is critically ill; prognosis is guarded at best.
[2017-06-09] MEDS: MORPHINE SULFATE 4mg INJECTION IVP PRN ×5 (08:00→22:11)
--- NOTE | 2017-06-09 08:55 | XRay Report ---
Indication: Shortness of air,Hypoxia PROCEDURE: XR chest 1V: Encounter: Initial Comparison: June 07, 2017 Findings: COPD changes are noted in the lungs without focal lobar consolidation. No pleural effusion or pneumothorax. Cardiomediastinal contours and pulmonary vascularity are stable. Impression: No focal pneumonia or congestive failure. There is a preliminary report by virtual radiologic. .
[2017-06-09] MEDS: ENOXAPARIN 40 MG/0.4 ML INJECTION SQ SCH (08:56)
[2017-06-09] MEDS: CLINDAMYCIN PB 600 MG/50 ML BAG IV SCH ×3 (11:10→22:23)
[2017-06-09] MEDS: 1/2 NS 1,000 ML IV SCH ×3 (11:10→23:24)
[2017-06-09] MEDS: PIPERACILLIN/TAZOBACTAM 3.375 GM in NS 100 ML IV SCH ×3 (13:22→22:54)
[2017-06-09] MEDS ORDERED: NOREPINEPHRINE DRIP 4,000 MCG in NS 250ml 250 ML IV PRN (14:30)
[2017-06-09] MEDS ORDERED: TRAVOPROST 0.004% EYE DROPS 2.5ml LEFT EYE SCH (21:00)
[2017-06-09] MEDS: MIRTAZAPINE 15 MG TABLET PO SCH (21:42)
[2017-06-09] MEDS: TAMSULOSIN 0.4 MG CAPSULE PO SCH (21:42)
[2017-06-09] MEDS: PrednisoLONE 1% EYE DROPS 5ml LEFT EYE SCH (22:10)
[2017-06-09] MEDS ORDERED: FALL RISK - PHARMACY CONSULT XX ONE (23:21)
[2017-06-10] MEDS: CLINDAMYCIN PB 600 MG/50 ML BAG IV SCH ×2 (04:18→10:32)
[2017-06-10] MEDS: PIPERACILLIN/TAZOBACTAM 3.375 GM in NS 100 ML IV SCH ×2 (05:02→09:49)
[2017-06-10] MEDS: 1/2 NS 1,000 ML IV SCH (06:26)
[2017-06-10] MEDS: LEVOTHYROXINE 125 MCG TABLET PO SCH (06:28)
[2017-06-10] MEDS: PrednisoLONE 1% EYE DROPS 5ml LEFT EYE SCH (08:14)
[2017-06-10] MEDS: ENOXAPARIN 40 MG/0.4 ML INJECTION SQ SCH (08:16)
--- NOTE | 2017-06-10 08:40 | Progress Note ---
- Date 06/10/17 Subjective: Piter has been restless, still in soft restraints. He is nonverbal, no acute distress. BiPAP mask removed and he was placed on NC @ 3L, and was maintaining sats in the upper 90s. HR has been 110-120s; BP still low. He's had only a minimal amount of urine output. Objective Vital signs: Temperature 97.6 F 06/10/17 04:00 Pulse Rate 111 H 06/10/17 05:00 Respiratory Rate 35 H 06/10/17 05:00 Blood Pressure 75/50 06/10/17 05:00 Pulse Oximetry 99 06/10/17 05:00 Rhythm: Atrial Fibrillation with RVR Height/Weight/BMI: Height 1.91 m Weight 70 kg Body Mass Index 19.1 - Constitutional Present: no acute distress, thin - Routine HEENT Exam ENT: Present: mucous membranes dry, oropharynx clear. Absent: dentition normal (missing teeth) - Routine Respiratory Exam Present: CTA bilaterally (anteriorly) - Routine Cardiovascular Exam Present: tachycardia, irregularly irregular - Routine Abdominal Exam Present: soft, non distended, non tender. Absent: normoactive bowel sounds ( hypoactive) - Routine Exam Comments: Love in place; scant amt of dark tyler urine present, only 2 mL output over the last 2 hrs - Routine Extremities Exam Present: no edema - Routine Musculoskeletal Exam Musculoskeletal: Present: moving extremities well (restraints on both upper ext) - Routine Skin Exam Present: intact, dry, warm - Routine Neurological Exam Present: alert - Routine Psychiatric Exam Present: unable to assess Results - Labs CBC & Chem 7: 06/10/17 05:16 06/10/17 05:16 - ABG Interpretation ABG results: 06/09/17 06/09/17 06:58 10:05 ABG pH 7.230 L ABG pCO2 26 L ABG pO2 410 H ABG HCO3 11 L ABG Total CO2 11.7 L ABG O2 Saturation 100.0 H ABG Base Excess -15.1 L VBG pH 7.100 L VBG pCO2 43 VBG pO2 38 L VBG HCO3 13 L VBG Total CO2 14.6 VBG O2 Saturation 50.0 VBG Base Excess -15.8 L Assessment and Plan (1) A-fib Current visit: Yes Status: Acute (2) Acute renal failure (ARF) Current visit: Yes Status: Acute (3) DM type 2 (diabetes mellitus, type 2) Current visit: Yes Status: Acute (4) Protein calorie malnutrition Current visit: Yes Status: Acute Assessment and Plan: Impression Acute respiratory failure requiring BiPAP Hypotension Afib with RVR - new onset Acute Kidney injury Acute Encephalopathy Hypernatremia (POA) Thrombocytopenia Acute generalized debility Hyperkalemia (not POA) MR Dysphagia Mitral valve prolapse with [id number] mitral regurgitation Moderate tricuspid regurgitation with moderate PH Stage II CKD GERD BPH Plan Pt with ongoing hypotension with MAPs in the 50s. Family against heroic measures including vasopressors. FRANCES worsening with very little UO and creatinine rise to 2.6. However, respiratory status improved and BiPAP was able to be removed this morning; holding sats in upper 90s on 3L on initial evaluation. LFTs also showing improvement. WBC decreased from 16 to 13.6. Platelets also showing decline (96). Continue Zosyn and Clindamycin for possible aspiration. Continue IVF. Overall, condition is guarded despite some improvement. He has multiple organ failures (respiratory, kidney, coags; along with new onset cardiac dysrhythmia and liver injury), and while some organ systems are better, his prognosis especially in light of severe oliguria, is poor without aggressive measures. Will discuss further with family. DVT Prophylaxis: Lovenox Resuscitation Status: Do Not Resuscitate - Time spent with patient Time with patient PN: 35 minutes Coordination of Care: >50% of visit spent providing counseling/coordination of care - Physician Narrative Physician: Sina Stephens MD Narrative: Date: 06/10/17 Time: 1205 Have independently interviewed and examined pt. Chart reviewed. Case discussed with CCU nursing, family, and my MANUFACTURING SUPERVISOR 2ND SHIFT. Care plan developed with my supervision; agree with above. Resting comfortably this afternoon. Not responsive. Nursing has been working with MS/Ativan to help maintain comfort. Creatinine with increase to 2.6- minimal urine output. BP still low. Lungs: decreased CV: irregularly irregular MSE: somnolent Plan: Discussed patient's status with family. With worsening Kidney function and low blood pressure, not optimistic about patient's likelihood of any meaningful recovery. They understand - do feel most important thing is to maintain his comfort (indeed that was patient's mother's dying wish that her boys would not suffer). Family in agreement for move to comfort care, agree with Hospice consult. CM notified of need for hospice evaluation - [facility]. Will stop IVF and IV antibiotics as continued use is futile. Will stop oral medications as patient not able to take oral due to encephalopathy. Continue MS and lorazepam for comfort. O2 for comfort. Hospital Course Summary Disclaimer: The visit summary below is not to be considered part of the above Progress Note. Hospital Course: 06/07/17 Admission Atrial fib acute POA: this would appear to be a new diagnosis. aspirin for sure. Not convinced great candidate for anticoagulation. his CHADSVASC score is at least 2. Echo ordered in am. on tele. Rule out MS. Acute renal failure POA: dehydration (pre renal). poor po intake with diuretic therapy. hold any diuretic therapy, gentle hydration, repeat in the am Hyperglycemia acute POA: there is mention of dm2 in a previous record. NH not clear. will recheck bmp in am and if elevated consider correction plan. Note do not r/c tight control at this age Protein caloric malnutrition acute POA: type not able to specify. patient is clinically very dry on exam and is described to have veyr poor po intake. consider dietary cx Gap metabolic acidosis acute POA: of some concern if diabetic. will check BHBA level and make any further considerations after that. Highly unlikely dka but must at least keep on radar Hypothyroid chronic POa: check TSH 06/08/17 Serial troponin negative for elevation. Sodium with decrease to 144 and creatinine with decrease to 1.4. TSH normal. Patient still very weak and encephalopathic. Continue with NS at 100cc/hr for hydration. Oral drive very poor. Midline placed as patient with very poor peripheral IV access. Speech to check swallow function. PT/OT to help improve functional status. Will stop Tamiflu secondary to encephalopathy-likely not initial cause of his decline, but likely contributing to encephalopathy at this point. Repeat Flu negative. 06/09/17 Despite 2L IVF bolus he remains hypotensive with SBP 80-90s. HR improved to 110s after BB was administered. Initially, he was just responsive to pain, but on reassessment a couple hours later he responded by shrugging his shoulders to DPOA/guardian DeDee who was in the room. Renal function and liver function declined: Cr 1.6, oliguric. LFTs increased. WBC also increased to 16, and plt are down to 116. Clinda and Zosyn started to cover for pulmonary source/poss aspiration. Clarified diagnosis of Type II DM - family deny history Discussed with DPOA -- primary focus is on comfort but at this time will proceed with BiPAP, IVF, abx, Love. DPOA is opposed to aggressive measures ie coding/intubation. If he continues to decline over the next 24 hours will consider comfort care. PT is critically ill; prognosis is guarded at best. 06/10/17 Pt with ongoing hypotension with MAPs in the 50s. Family against heroic measures including vasopressors. FRANCES worsening with very little UO and creatinine rise to 2.6. However, respiratory status improved and BiPAP was able to be removed this morning; holding sats in upper 90s on 3L on initial evaluation. LFTs also showing improvement. WBC decreased from 16 to 13.6. Platelets also showing decline. Overall, condition is guarded despite some improvement. He has multiple organ failures (respiratory, kidney, coags; along with new onset cardiac dysrhythmia and liver injury), and while some organ systems are better, his prognosis especially in light of severe oliguria, is poor without aggressive measures. Will discuss further with family.
[2017-06-10] MEDS: MORPHINE SULFATE 4mg INJECTION IVP PRN (12:31)
[2017-06-10] MEDS: MORPHINE SULFATE 2mg INJECTION IVP SCH ×2 (17:45→20:31)
[2017-06-11] MEDS: MORPHINE SULFATE 2mg INJECTION IVP SCH ×6 (02:53→19:55)
[2017-06-11] MEDS: SALINE FLUSH 10ml SYRINGE IVF PRN ×7 (07:53→17:35)
--- NOTE | 2017-06-11 11:49 | Progress Note ---
- Date 06/11/17 Subjective: Piter was resting comfortably, occasionally bringing his left arm up and moving his legs. He was unresponsive. He remains on room air. Love to DD. He has required frequent doses of morphine and ativan to help with restlessness. Objective Vital signs: Temperature 96.5 F L 06/11/17 07:14 Pulse Rate 115 H 06/11/17 07:14 Respiratory Rate 16 06/11/17 07:14 Blood Pressure 112/68 06/11/17 07:14 Pulse Oximetry 95 06/11/17 07:14 Rhythm: Atrial Fibrillation with RVR Height/Weight/BMI: Height 1.91 m Weight 72.9 kg Body Mass Index 19.1 - Constitutional Present: no acute distress, thin - Routine Respiratory Exam Present: CTA bilaterally (anteriorly) - Routine Cardiovascular Exam Present: tachycardia, irregularly irregular - Routine Abdominal Exam Present: non distended. Absent: normoactive bowel sounds (hypoactive) - Routine Extremities Exam Present: no edema - Routine Skin Exam Present: intact, dry, warm - Routine Neurological Exam Absent: alert, oriented X3 - Routine Psychiatric Exam Present: unable to assess Results - Labs CBC & Chem 7: 06/10/17 05:16 06/10/17 05:16 Assessment and Plan (1) A-fib Current visit: Yes Status: Acute (2) Acute renal failure (ARF) Current visit: Yes Status: Acute (3) DM type 2 (diabetes mellitus, type 2) Current visit: Yes Status: Acute (4) Protein calorie malnutrition Current visit: Yes Status: Acute Assessment and Plan: Impression Acute respiratory failure requiring BiPAP Hypotension Afib with RVR - new onset Acute Kidney injury Acute Encephalopathy Hypernatremia (POA) Thrombocytopenia Acute generalized debility Hyperkalemia (not POA) MR Dysphagia Mitral valve prolapse with [id number] mitral regurgitation Moderate tricuspid regurgitation with moderate PH Stage II CKD GERD BPH Plan Restless and nonverbal. Unexpected improvements in respiratory, cardiovascular and renal status (increased UO), but still with poor chance of meaningful recovery and family wishes to continue with hospice care. Continue IV morphine, ativan for comfort. Discussed with family and with Dr. Stephens. Resuscitation Status: Do Not Resuscitate - Physician Narrative Physician: Sina Stephens MD Narrative: Date: 06/11/17 Time: 1325 Have independently interviewed and examined pt. Chart reviewed. Cased discussed with Hospice nurse and my SIZING MACHINE OPERATOR. Care plan developed with my supervision; agree with above. Resting comfortably at this time. Shallow respirations. Brother notes some episodes of apnea. Did move arms spontaneously. Not responding to verbal stimuli. Had episode of increased restlessness this am. Lungs: decreased, shallow breathing. CV: irregular MSE: somnolent GEN: appears comfortable Plan: Will continue with inpatient hospice care. Lorazepam increased to 0.5mg IV q2 hours per hospice nurse request to help control symptoms. Emotional support to family. Anticipate terminal event in near future. Hospital Course Summary Disclaimer: The visit summary below is not to be considered part of the above Progress Note. Hospital Course: 06/07/17 Admission Atrial fib acute POA: this would appear to be a new diagnosis. aspirin for sure. Not convinced great candidate for anticoagulation. his CHADSVASC score is at least 2. Echo ordered in am. on tele. Rule out ND. Acute renal failure POA: dehydration (pre renal). poor po intake with diuretic therapy. hold any diuretic therapy, gentle hydration, repeat in the am Hyperglycemia acute POA: there is mention of dm2 in a previous record. NH not clear. will recheck bmp in am and if elevated consider correction plan. Note do not r/c tight control at this age Protein caloric malnutrition acute POA: type not able to specify. patient is clinically very dry on exam and is described to have veyr poor po intake. consider dietary cx Gap metabolic acidosis acute POA: of some concern if diabetic. will check BHBA level and make any further considerations after that. Highly unlikely dka but must at least keep on radar Hypothyroid chronic POa: check TSH 06/08/17 Serial troponin negative for elevation. Sodium with decrease to 144 and creatinine with decrease to 1.4. TSH normal. Patient still very weak and encephalopathic. Continue with NS at 100cc/hr for hydration. Oral drive very poor. Midline placed as patient with very poor peripheral IV access. Speech to check swallow function. PT/OT to help improve functional status. Will stop Tamiflu secondary to encephalopathy-likely not initial cause of his decline, but likely contributing to encephalopathy at this point. Repeat Flu negative. 06/09/17 Despite 2L IVF bolus he remains hypotensive with SBP 80-90s. HR improved to 110s after BB was administered. Initially, he was just responsive to pain, but on reassessment a couple hours later he responded by shrugging his shoulders to DPOA/guardian Nachoee who was in the room. Renal function and liver function declined: Cr 1.6, oliguric. LFTs increased. WBC also increased to 16, and plt are down to 116. Clinda and Zosyn started to cover for pulmonary source/poss aspiration. Clarified diagnosis of Type II DM - family deny history Discussed with DPOA -- primary focus is on comfort but at this time will proceed with BiPAP, IVF, abx, Love. DPOA is opposed to aggressive measures ie coding/intubation. If he continues to decline over the next 24 hours will consider comfort care. PT is critically ill; prognosis is guarded at best. 06/10/17 Pt with ongoing hypotension with MAPs in the 50s. Family against heroic measures including vasopressors. FRANCES worsening with very little UO and creatinine rise to 2.6. However, respiratory status improved and BiPAP was able to be removed this morning; holding sats in upper 90s on 3L on initial evaluation. LFTs also showing improvement. WBC decreased from 16 to 13.6. Platelets also showing decline. Overall, condition is guarded despite some improvement. He has multiple organ failures (respiratory, kidney, coags; along with new onset cardiac dysrhythmia and liver injury), and while some organ systems are better, his prognosis especially in light of severe oliguria, is poor without aggressive measures. 06/11/17 Restless and nonverbal. Unexpected improvements in respiratory, cardiovascular and renal status (increased UO), but still with poor chance of meaningful recovery and family wishes to continue with hospice care. Continue IV morphine, ativan for comfort.
[2017-06-12] MEDS: MORPHINE SULFATE 2mg INJECTION IVP SCH ×6 (00:27→21:31)
--- NOTE | 2017-06-12 13:30 | Progress Note ---
- Date 06/12/17 Subjective: F/U: Multisystem organ failure, FRANCES, acute resp failure, afib -- Comfort care measures Resting comfortably in bed. Not responding to verbal stimuli. No respiratory distress Objective Vital signs: Temperature 96.5 F L 06/11/17 07:14 Pulse Rate 90 06/12/17 11:00 Respiratory Rate 14 06/12/17 11:00 Blood Pressure 134/100 H 06/12/17 11:55 Pulse Oximetry 100 06/12/17 11:00 Rhythm: Atrial Fibrillation with RVR Height/Weight/BMI: Height 1.91 m Weight 71.4 kg Body Mass Index 19.1 - Constitutional Present: no acute distress, well nourished, well developed, average body habitus , obtunded - Routine HEENT Exam Head: Present: normocephalic, atraumatic ENT: Present: mucous membranes dry - Routine Respiratory Exam Present: decreased breath sounds. Absent: respiratory distress - Routine Cardiovascular Exam Present: irregular rhythm, irregularly irregular - Routine Abdominal Exam Present: soft, non distended, non tender. Absent: normoactive bowel sounds - Routine Extremities Exam Present: pulses intact. Absent: cyanosis, clubbing - Routine Skin Exam Present: dry, warm Comments: Unresponsive - Routine Psychiatric Exam Comments: Unresponsive Results - Labs CBC & Chem 7: 06/10/17 05:16 06/10/17 05:16 Assessment and Plan (1) A-fib Current visit: Yes Status: Acute (2) Acute renal failure (ARF) Current visit: Yes Status: Acute (3) DM type 2 (diabetes mellitus, type 2) Current visit: Yes Status: Acute (4) Protein calorie malnutrition Current visit: Yes Status: Acute Assessment and Plan: Impression Multisystem organ failure Acute respiratory failure requiring BiPAP Hypotension Afib with RVR - new onset Acute Kidney injury Acute Encephalopathy Hypernatremia (POA) Thrombocytopenia Acute generalized debility Hyperkalemia (not POA) MR Dysphagia Mitral valve prolapse with [id number] mitral regurgitation Moderate tricuspid regurgitation with moderate PH Stage II CKD GERD BPH Plan Remains comfortable with Hospice support. Nonverbal. Continue with comfort measures. Resuscitation Status: Do Not Resuscitate - Physician Narrative Physician: Sina Stephens MD Narrative: Date: 06/12/17 Time: 1326 Hospital Course Summary Disclaimer: The visit summary below is not to be considered part of the above Progress Note. Hospital Course: 06/07/17 Admission Atrial fib acute POA: this would appear to be a new diagnosis. aspirin for sure. Not convinced great candidate for anticoagulation. his CHADSVASC score is at least 2. Echo ordered in am. on tele. Rule out HI. Acute renal failure POA: dehydration (pre renal). poor po intake with diuretic therapy. hold any diuretic therapy, gentle hydration, repeat in the am Hyperglycemia acute POA: there is mention of dm2 in a previous record. NH not clear. will recheck bmp in am and if elevated consider correction plan. Note do not r/c tight control at this age Protein caloric malnutrition acute POA: type not able to specify. patient is clinically very dry on exam and is described to have veyr poor po intake. consider dietary cx Gap metabolic acidosis acute POA: of some concern if diabetic. will check BHBA level and make any further considerations after that. Highly unlikely dka but must at least keep on radar Hypothyroid chronic POA: check TSH 06/08/17 Serial troponin negative for elevation. Sodium with decrease to 144 and creatinine with decrease to 1.4. TSH normal. Patient still very weak and encephalopathic. Continue with NS at 100cc/hr for hydration. Oral drive very poor. Midline placed as patient with very poor peripheral IV access. Speech to check swallow function. PT/OT to help improve functional status. Will stop Tamiflu secondary to encephalopathy-likely not initial cause of his decline, but likely contributing to encephalopathy at this point. Repeat Flu negative. 06/09/17 Despite 2L IVF bolus he remains hypotensive with SBP 80-90s. HR improved to 110s after BB was administered. Initially, he was just responsive to pain, but on reassessment a couple hours later he responded by shrugging his shoulders to DPOA/guardian DeDee who was in the room. Renal function and liver function declined: Cr 1.6, oliguric. LFTs increased. WBC also increased to 16, and plt are down to 116. Clinda and Zosyn started to cover for pulmonary source/poss aspiration. Clarified diagnosis of Type II DM - family deny history Discussed with DPOA -- primary focus is on comfort but at this time will proceed with BiPAP, IVF, abx, Love. DPOA is opposed to aggressive measures ie coding/intubation. If he continues to decline over the next 24 hours will consider comfort care. PT is critically ill; prognosis is guarded at best. 06/10/17 Pt with ongoing hypotension with MAPs in the 50s. Family against heroic measures including vasopressors. FRANCES worsening with very little UO and creatinine rise to 2.6. However, respiratory status improved and BiPAP was able to be removed this morning; holding sats in upper 90s on 3L on initial evaluation. LFTs also showing improvement. WBC decreased from 16 to 13.6. Platelets also showing decline. Overall, condition is guarded despite some improvement. He has multiple organ failures (respiratory, kidney, coags; along with new onset cardiac dysrhythmia and liver injury), and while some organ systems are better, his prognosis especially in light of severe oliguria, is poor without aggressive measures. 06/11/17 Restless and nonverbal. Unexpected improvements in respiratory, cardiovascular and renal status (increased UO), but still with poor chance of meaningful recovery and family wishes to continue with hospice care. Continue IV morphine, Ativan for comfort. 06/12/17 Remains comfortable with Hospice support. Nonverbal. Continue with comfort measures.
[2017-06-12] MEDS: SALINE FLUSH 10ml SYRINGE IVF PRN (21:32)
[2017-06-13] MEDS: MORPHINE SULFATE 2mg INJECTION IVP SCH ×10 (00:03→22:15)
[2017-06-13] MEDS ORDERED: SCOPOLAMINE 1mg/3 days PATCH (Eq. 1.5 Patch) TD SCH (04:00)
[2017-06-13] MEDS ORDERED: SCOPOLAMINE PATCH REMOVAL TD SCH (04:00)
[2017-06-13] MEDS: ATROPINE 1% EYE DROPS PO/SL PRN ×2 (04:01→05:40)
[2017-06-13] MEDS: MORPHINE SULFATE 4mg INJECTION IVP PRN (09:52)
[2017-06-13] MEDS: ATROPINE 1% EYE DROPS PO/SL SCH ×3 (09:53→21:45)
--- NOTE | 2017-06-13 12:58 | Progress Note ---
- Date 06/13/17 Subjective: F/U: Multisystem organ failure, FRANCES, acute resp failure, afib -- Comfort care measures Resting comfortably in bed. Did have increased restlessness and secretions this morning. MS and Atropine increased which has been beneficial. Breathing shallow , episodes of apnea. Not responsive to verbal stimuli. Family member with him; does feel he is comfortable with current treatments. Objective Vital signs: Temperature 98.5 F 06/13/17 11:55 Pulse Rate 88 06/13/17 11:55 Respiratory Rate 24 06/13/17 11:55 Blood Pressure 120/66 06/13/17 11:55 Pulse Oximetry 96 06/13/17 11:55 Rhythm: Atrial Fibrillation with RVR Height/Weight/BMI: Height 1.91 m Weight 71.2 kg Body Mass Index 19.1 - Constitutional Present: well developed, thin, obtunded - Routine HEENT Exam Head: Present: normocephalic, atraumatic ENT: Present: mucous membranes dry - Routine Respiratory Exam Present: decreased breath sounds - Routine Cardiovascular Exam Present: irregular rhythm, irregularly irregular - Routine Abdominal Exam Present: soft. Absent: guarding - Routine Extremities Exam Present: no edema, pulses intact. Absent: cyanosis, clubbing - Routine Musculoskeletal Exam Musculoskeletal: Present: no clubbing or cyanosis - Routine Skin Exam Present: dry, warm - Routine Neurological Exam Unresponsive - Routine Psychiatric Exam Comments: Unresponsive Results - Labs CBC & Chem 7: 06/10/17 05:16 06/10/17 05:16 Assessment and Plan (1) A-fib Current visit: Yes Status: Acute (2) Acute renal failure (ARF) Current visit: Yes Status: Acute (3) DM type 2 (diabetes mellitus, type 2) Current visit: Yes Status: Acute (4) Protein calorie malnutrition Current visit: Yes Status: Acute Assessment and Plan: Impression Multisystem organ failure Acute respiratory failure requiring BiPAP Hypotension Afib with RVR - new onset Acute Kidney injury Acute Encephalopathy Hypernatremia (POA) Thrombocytopenia Acute generalized debility Hyperkalemia (not POA) MR Dysphagia Mitral valve prolapse with [id number] mitral regurgitation Moderate tricuspid regurgitation with moderate PH Stage II CKD GERD BPH Plan Increased restlessness this am: MS increased to 2mg IV q2 hours to help pain and atropine increased to help secretions. Responding to adjustments. Appears comfortable currently. Continue with comfort measures. Resuscitation Status: Do Not Resuscitate - Physician Narrative Physician: Sina Stephens MD Narrative: Date: 06/13/17 Time: 1254 Hospital Course Summary Disclaimer: The visit summary below is not to be considered part of the above Progress Note. Hospital Course: 06/07/17 Admission Atrial fib acute POA: this would appear to be a new diagnosis. aspirin for sure. Not convinced great candidate for anticoagulation. his CHADSVASC score is at least 2. Echo ordered in am. on tele. Rule out LA. Acute renal failure POA: dehydration (pre renal). poor po intake with diuretic therapy. hold any diuretic therapy, gentle hydration, repeat in the am Hyperglycemia acute POA: there is mention of dm2 in a previous record. NH not clear. will recheck bmp in am and if elevated consider correction plan. Note do not r/c tight control at this age Protein caloric malnutrition acute POA: type not able to specify. patient is clinically very dry on exam and is described to have veyr poor po intake. consider dietary cx Gap metabolic acidosis acute POA: of some concern if diabetic. will check BHBA level and make any further considerations after that. Highly unlikely dka but must at least keep on radar Hypothyroid chronic POA: check TSH 06/08/17 Serial troponin negative for elevation. Sodium with decrease to 144 and creatinine with decrease to 1.4. TSH normal. Patient still very weak and encephalopathic. Continue with NS at 100cc/hr for hydration. Oral drive very poor. Midline placed as patient with very poor peripheral IV access. Speech to check swallow function. PT/OT to help improve functional status. Will stop Tamiflu secondary to encephalopathy-likely not initial cause of his decline, but likely contributing to encephalopathy at this point. Repeat Flu negative. 06/09/17 Despite 2L IVF bolus he remains hypotensive with SBP 80-90s. HR improved to 110s after BB was administered. Initially, he was just responsive to pain, but on reassessment a couple hours later he responded by shrugging his shoulders to DPOA/guardian Nachoee who was in the room. Renal function and liver function declined: Cr 1.6, oliguric. LFTs increased. WBC also increased to 16, and plt are down to 116. Clinda and Zosyn started to cover for pulmonary source/poss aspiration. Clarified diagnosis of Type II DM - family deny history Discussed with DPOA -- primary focus is on comfort but at this time will proceed with BiPAP, IVF, abx, Loev. DPOA is opposed to aggressive measures ie coding/intubation. If he continues to decline over the next 24 hours will consider comfort care. PT is critically ill; prognosis is guarded at best. 06/10/17 Pt with ongoing hypotension with MAPs in the 50s. Family against heroic measures including vasopressors. FRANCES worsening with very little UO and creatinine rise to 2.6. However, respiratory status improved and BiPAP was able to be removed this morning; holding sats in upper 90s on 3L on initial evaluation. LFTs also showing improvement. WBC decreased from 16 to 13.6. Platelets also showing decline. Overall, condition is guarded despite some improvement. He has multiple organ failures (respiratory, kidney, coags; along with new onset cardiac dysrhythmia and liver injury), and while some organ systems are better, his prognosis especially in light of severe oliguria, is poor without aggressive measures. 06/11/17 Restless and nonverbal. Unexpected improvements in respiratory, cardiovascular and renal status (increased UO), but still with poor chance of meaningful recovery and family wishes to continue with hospice care. Continue IV morphine, Ativan for comfort. 06/12/17 Remains comfortable with Hospice support. Nonverbal. Continue with comfort measures. 06/13/17 Increased restlessness this am: MS increased to 2mg IV q2 hours to help pain and atropine increased to help secretions. Responding to adjustments. Appears comfortable currently. Continue with comfort measures.
[2017-06-13] MEDS: SALINE FLUSH 10ml SYRINGE IVF PRN ×2 (19:45→22:16)
[2017-06-14] MEDS: MORPHINE SULFATE 2mg INJECTION IVP SCH ×2 (00:05→02:08)
[2017-06-14] MEDS: SALINE FLUSH 10ml SYRINGE IVF PRN (02:09)
[2017-06-14 03:28] VITALS: BP 155/45; PULSE 89; RESP 20; TEMP 99.2; O2SAT 98
--- NOTE | 2017-07-09 14:33 | Death Note ---
Providers - Provider Primary care physician: Dr Ojeda Admitting clinician: Sina Stephens Attending Physician: Sina Stephens Consults: Hospice Consult [CONS] Routine Comment: [facility] Pronouncing clinician: Sina Stephens Diagnosis - PCOD Cause of : Multiple organ failure - Contributing Factors (1) A-fib Status: Acute (2) Acute renal failure (ARF) Status: Acute (3) DM type 2 (diabetes mellitus, type 2) Status: Acute (4) Protein calorie malnutrition Status: Acute Summary - Date and Time Date of admission: 06/07/17 23:10 Date of : 06/14/17 Time of : 02:55 - Summary Details: 06/07/17 Admission Atrial fib acute POA: this would appear to be a new diagnosis. aspirin for sure. Not convinced great candidate for anticoagulation. his CHADSVASC score is at least 2. Echo ordered in am. on tele. Rule out CA. Acute renal failure POA: dehydration (pre renal). poor po intake with diuretic therapy. hold any diuretic therapy, gentle hydration, repeat in the am Hyperglycemia acute POA: there is mention of dm2 in a previous record. NH not clear. will recheck bmp in am and if elevated consider correction plan. Note do not r/c tight control at this age Protein caloric malnutrition acute POA: type not able to specify. patient is clinically very dry on exam and is described to have veyr poor po intake. consider dietary cx Gap metabolic acidosis acute POA: of some concern if diabetic. will check BHBA level and make any further considerations after that. Highly unlikely dka but must at least keep on radar Hypothyroid chronic POA: check TSH 06/08/17 Serial troponin negative for elevation. Sodium with decrease to 144 and creatinine with decrease to 1.4. TSH normal. Patient still very weak and encephalopathic. Continue with NS at 100cc/hr for hydration. Oral drive very poor. Midline placed as patient with very poor peripheral IV access. Speech to check swallow function. PT/OT to help improve functional status. Will stop Tamiflu secondary to encephalopathy-likely not initial cause of his decline, but likely contributing to encephalopathy at this point. Repeat Flu negative. 06/09/17 Despite 2L IVF bolus he remains hypotensive with SBP 80-90s. HR improved to 110s after BB was administered. Initially, he was just responsive to pain, but on reassessment a couple hours later he responded by shrugging his shoulders to DPOA/guardian Nachoee who was in the room. Renal function and liver function declined: Cr 1.6, oliguric. LFTs increased. WBC also increased to 16, and plt are down to 116. Clinda and Zosyn started to cover for pulmonary source/poss aspiration. Clarified diagnosis of Type II DM - family deny history Discussed with DPOA -- primary focus is on comfort but at this time will proceed with BiPAP, IVF, abx, Love. DPOA is opposed to aggressive measures ie coding/intubation. If he continues to decline over the next 24 hours will consider comfort care. PT is critically ill; prognosis is guarded at best. 06/10/17 Pt with ongoing hypotension with MAPs in the 50s. Family against heroic measures including vasopressors. FRANCES worsening with very little UO and creatinine rise to 2.6. However, respiratory status improved and BiPAP was able to be removed this morning; holding sats in upper 90s on 3L on initial evaluation. LFTs also showing improvement. WBC decreased from 16 to 13.6. Platelets also showing decline. Overall, condition is guarded despite some improvement. He has multiple organ failures (respiratory, kidney, coags; along with new onset cardiac dysrhythmia and liver injury), and while some organ systems are better, his prognosis especially in light of severe oliguria, is poor without aggressive measures. 06/11/17 Restless and nonverbal. Unexpected improvements in respiratory, cardiovascular and renal status (increased UO), but still with poor chance of meaningful recovery and family wishes to continue with hospice care. Continue IV morphine, Ativan for comfort. 06/12/17 Remains comfortable with Hospice support. Nonverbal. Continue with comfort measures. 06/13/17 Increased restlessness this am: MS increased to 2mg IV q2 hours to help pain and atropine increased to help secretions. Responding to adjustments. Appears comfortable currently. Continue with comfort measures. 06/14/17 PT PAST AT 0255, DPOA WAS AT BEDSIDE. AUSCULTATED FOR ONE MINUTE, NO HEART BEAT WAS NOTED. HOUSE SUP., CHARGE NURSE AND CONTENT EDITOR WERE NOTIFIED. DR AGUERO WAS NOTIFIED OF THE AND FOR A ORDER TO DISCHARGE PT'S BODY TO THE HOME. FAMILY SAT AT BEDSIDE UNTIL CONTENT EDITOR ARRIVED. - Additional Data Confirmation of as documented by pronouncing clinician: no pulse, no respirations, no heart sounds Family: at bedside Attending/PCP notified?: Yes Attending physician: Sina Stephens MD Was code activated?: No (On inpatient Hospice care - DNR) Hospice patient?: Yes ([facility])
== END 2017-06-14 03:55 | disposition expired | DRG 308 ==
LOC: EDBD → ED 15:24 → MED 23:10 → SUATTDRO 23:10 → MED 23:30 → CCU 06-09 07:16 → MED 06-10 18:20
PROVIDERS: ADMIT Emergency Medicine; ATTEND Hospitalist